=== PATIENT | male | born 1990 | race Caucasian/White ===

== ENCOUNTER 2017-06-12 19:07 | Emergency (ER) | payer OTHER ==
--- NOTE | 2017-06-13 10:43 | XR ---
EXAMINATION TYPE: 2 view chest radiograph DATE OF EXAM: 06/12/2017 COMPARISON: NONE HISTORY: Chest pain TECHNIQUE: Frontal and lateral radiograph's were performed of the chest. FINDINGS: Patchy opacity seen within the right upper lobe that could represent early developing pneu monia. No other focal consolidation, pleural effusion or pneumothorax is seen. Cardiac silhouette is within normal limits. Osseous structures are intact. IMPRESSION: Patchy opacity within the right upper lobe that may represent early pneumonia. Repeat ex am after treatment is recommended to evaluate for resolution.
[2017-06-13 16:07] LABS: Basophils % (A) 0 %; Eosinophils # (A) 0.1 k/uL (0-0.7); Eosinophils % (A) 1 %; HCT 45.3 % (39.0-53.0); HGB 15.6 gm/dL (13.0-17.5); Lymphocytes # (A) 1.8 k/uL (1.0-4.8); Lymphocytes % (A) 17 %; MCH 30.3 pg (25.0-35.0); MCHC 34.4 g/dL (31.0-37.0); Mean Platelet Volume 6.9; Monocytes # (A) 0.8 k/uL (0-1.0); Monocytes % (A) 7 %; Neutrophils # (A) 7.5 k/uL (1.3-7.7); Neutrophils % (A) 72 %; Platelet Count 243 k/uL (150-450); RBC 5.15 m/uL (4.30-5.90); RDW 12.1 % (11.5-15.5); WBC 10.4 k/uL (3.8-10.6)
[2017-06-13 17:34] LABS: ALT 38 U/L (21-72); AST 38 U/L (17-59); Albumin 4.4 g/dL (3.5-5.0); Alkaline Phosphatase 82 U/L (38-126); Anion Gap 9 mmol/L; Blood Urea Nitrogen 17 mg/dL (9-20); Calcium 9.7 mg/dL (8.4-10.2); Carbon Dioxide 28 mmol/L (22-30); Chloride 103 mmol/L (98-107); Glucose 82 mg/dL (74-99); Potassium 4.6 mmol/L (3.5-5.1); Sodium 140 mmol/L (137-145); Total Bilirubin 0.7 mg/dL (0.2-1.3); Total Protein 7.6 g/dL (6.3-8.2)
[2017-06-13 17:35] LABS: Creatine Kinase 295 U/L (55-170); Creatine Kinase MB 2.3 ng/mL (0.0-2.4); Troponin I <0.012 ng/mL (0.000-0.034)
== END 2017-06-12 22:30 | disposition home or self-care (01) ==
LOC: EC 19:07
DX: R07.9 Chest pain, unspecified (principal)
CPT/HCPCS: 36415; 71020; 80053; 82550; 82553; 84484; 85025; 93005; 99285